=== PATIENT | female | born 1980 | race American Indian/Alaskan Native ===

== ENCOUNTER 2017-09-10 12:08 | Outpatient (CLI) | payer OTHER ==
--- NOTE | 2017-09-10 14:28 | XRay Report ---
THORACIC SPINE RADIOGRAPHS INDICATION: Mid back pain. COMPARISON: None similar. FINDINGS: AP and lateral thoracic spine radiographs demonstrate multilevel spurring and some possible disc degeneration. Grossly preserved vertebral body stature and alignment. No abnormal paraspinal density. Clear imaged lungs. Possible cholecystectomy clips. CONCLUSION: Multilevel thoracic spondylosis, as described. Thank you for the opportunity to participate in this patient's care.
--- NOTE | 2017-09-10 19:15 | XRay Report ---
FINAL REPORT EXAM: XR SPINE LUMBOSACRAL 4+V HISTORY: LOW BACK PAIN TECHNIQUE: Six views lumbosacral spine Comparison: None FINDINGS: Exaggerated lumbar lordosis. Multilevel mild marginal osteophytes. No spondylolisthesis. No significant disc space narrowing. Levoscoliosis, apex at L3. Clips are present in the right upper quadrant. There is mild fecal retention in the right colon and rectum. SI joints are open. Sacral arches are grossly intact. Normal bony mineralization. IMPRESSION: Exaggerated lumbar lordosis and mild levoscoliosis. Normal alignment. Multilevel marginal spondylitic change. Preserved disc spaces. Previous cholecystectomy.
== END 2017-09-10 12:09 | disposition home or self-care (01) ==
LOC: XRAY 12:08
PROVIDERS: ATTEND Internal Medicine
DX: M41.86 Other forms of scoliosis, lumbar region (principal); K59.00 Constipation, unspecified; Z90.49 Acquired absence of other specified parts of digestive tract
CPT/HCPCS: 72072; 72110

== ENCOUNTER 2018-07-02 09:03 | Emergency (ER) | payer OTHER ==
--- NOTE | 2018-07-02 10:44 | Emergency Department Report ---
Minor Respiratory - HPI Chief Complaint: Upper Respiratory Infection Stated Complaint: COLD SX/RESPIRATORY ISSUES Duration: 5 Days Pain Location: Nose, Chest Severity: moderate Minor Respiratory: Yes Rhinorrhea, Yes Able to Tolerate Fluids, Yes Cough, No Sore Throat, No Ear Pain, No Sick Contacts, No Hemoptysis, No Chest Pain, No Shortness of Breath, No Fever Other History: This is a 37 year-old female who presents with a productive cough for 1 month. Patient states she called on-call hotline and receive Augmentin and a Medrol Dosepak on 05/24/2008 which helped with congestion for a few days. Patient states symptoms returned on 06/20/2018 she called the hotline again and was prescribed Z-Je and Tessalon Perles which helped symptoms for a few days. Patient states she went and saw her primary care provider on Thursday who prescribed albuterol, prednisone, and cough syrup which is not improved in symptoms. Patient states she is also taking Mucinex and Robitussin. Patient states cough is worse at night and caused and vomiting. She she denies chest pain, shortness of breath, myalgia, diarrhea, or fever. ED Review of Systems ROS: Stated complaint: COLD SX/RESPIRATORY ISSUES Other details as noted in HPI Constitutional: denies: chills, fever ENT: congestion. denies: ear pain, throat pain, dental pain, hearing loss, epistaxis Respiratory: cough. denies: shortness of breath, wheezing Cardiovascular: denies: chest pain (right-sided rib pain), palpitations Gastrointestinal: nausea, vomiting. denies: abdominal pain, diarrhea Musculoskeletal: denies: myalgia Neurological: denies: headache, weakness, paresthesias Psychiatric: denies: anxiety, depression ED Past Medical Hx - Past Medical History Hx Hypertension: Yes - Surgical History Hx Cholecystectomy: Yes - Social History Smoking Status: Never Smoker Substance Use Type: None - Medications Home Medications: Home Medications Medication Instructions Recorded Confirmed Last Taken Type Benzonatate [Tessalon Perles] 100 mg PO Q8HR PRN #30 capsule 07/02/18 Unknown Rx Cetirizine HCl [Zyrtec] 10 mg PO DAILY #30 tablet 07/02/18 Unknown Rx Fluticasone [Flonase] 1 spray NS QDAY #1 bottle 07/02/18 Unknown Rx Minor Respiratory Exam - Exam General: Vital signs noted. No distress. Alert and acting appropriately. HEENT: Yes Pharyngeal Erythema (erythematous posterior neck, uvula midline without exudate), Yes Moist Mucous Membranes, Yes Rhinorrhea (turbinates are mildly congested with clear discharge), No Pharyngeal Exudates, No Conjuctival Injection, No Frontal Tenderness, No Maxillary Tenderness Ear: Neither TM Bulge, Neither TM Erythema, Neither EAC Pain, Neither EAC Discharge Neck: Yes Supple, No Adenopathy Lungs: Yes Good Air Exchange, Yes Cough, No Wheezes, No Ronchi, No Stridor, No Labored Respirations, No Retractions, No Use of Accessory Muscles, No Other Abnormal Lung Sounds Heart: Yes Regular, No Murmur Abdomen: Yes Normal Bowel Sounds, No Tenderness, No Peritoneal Signs Skin: No Rash, No Edema Neurologic: Alert and oriented, no deficits. Musculoskeletal: Unremarkable. ED Course Vital Signs 07/02/18 09:43 Temperature 98.1 F Pulse Rate 96 H Respiratory 18 Rate Blood Pressure 152/100 O2 Sat by Pulse 98 Oximetry ED Medical Decision Making - Radiology Data Radiology results: report reviewed CHEST 2 VIEWS INDICATION: Cough, right rib pain. COMPARISON: None similar. FINDINGS: PA and lateral chest radiographs demonstrate normal cardiomediastinal silhouette and clear lungs, given the inspiration. Multilevel spinal spondylosis. Cholecystectomy clips. CONCLUSION: No acute disease in the chest. - Medical Decision Making 37 y.o. female that presents with URI symptoms. Patient examined by me and stable. No distress noted. Blood pressure slightly elevated. Asthma. History of hypertension and patient's blood pressure medication prior to coming in. Given benzonatate 200 mg by mouth once while in ER. Chest xray has been obtained and dictated by radiologist with no acute cardiopulmonary findings. Upper respiratory infection. Start cetirizine, Flonase, and benzonatate. Review results and plan with patient. Discharged home stable. Follow up with Primary Care Provider in 2-3 days. Critical care attestation.: If time is entered above; I have spent that time in minutes in the direct care of this critically ill patient, excluding procedure time. ED Disposition Clinical Impression: Post-viral cough syndrome, Myalgia Upper respiratory infection Qualifiers: URI type: acute nasopharyngitis (common cold) Qualified Code(s): J00 - Acute nasopharyngitis [common cold] Disposition: -01 TO HOME OR SELFCARE Is pt being admited?: No Does the pt Need Aspirin: No Condition: Stable Instructions: Viral Syndrome (ED), Upper Respiratory Infection (ED), Acute Cough (ED) Additional Instructions: Increase fluid intake and rest. Wash hands frequently. Continue taking Tylenol or ibuprofen to control fever. F/U with Primary Care Provider. Return to ER if fever, SOB, or difficulty breathing after 48 hours of supportive care. Prescriptions: Benzonatate [Tessalon Perles] 100 mg PO Q8HR PRN #30 capsule PRN Reason: Cough Cetirizine HCl [Zyrtec] 10 mg PO DAILY #30 tablet Fluticasone [Flonase] 1 spray NS QDAY #1 bottle Referrals: LONI MEDINA MD [Primary Care Provider] - 3-[facility] Days [facility] - 3-5 Days [facility] [Provider Group] - 3-5 Days Forms: Work/School Release Form(ED) Time of Disposition: 12:41
[2018-07-02] MEDS ORDERED: TESSALON PERLES PO ONE ×2 (11:42→11:45)
--- NOTE | 2018-07-02 12:24 | XRay Report ---
CHEST 2 VIEWS INDICATION: Cough, right rib pain. COMPARISON: None similar. FINDINGS: PA and lateral chest radiographs demonstrate normal cardiomediastinal silhouette and clear lungs, given the inspiration. Multilevel spinal spondylosis. Cholecystectomy clips. CONCLUSION: No acute disease in the chest. Thank you for the opportunity to participate in this patient's care.
[2018-07-04 11:45] VITALS: BP 159/96
== END 2018-07-02 13:05 | disposition home or self-care (01) ==
LOC: ED 09:03
DX: J00 Acute nasopharyngitis [common cold] (principal); B34.9 Viral infection, unspecified; M79.18 Myalgia, other site; I10 Essential (primary) hypertension
CPT/HCPCS: 71046